=== PATIENT | male | born 1945 | race African-American/Black ===

== ENCOUNTER 2023-10-19 20:53 | Emergency (ER) | payer OTHER, BC ==
[2023-10-19 21:05] VITALS: BP 168/72; PULSE 102; RESP 18; TEMP 98.8; BMI 22.0
== END 2023-10-19 23:28 | disposition left against medical advice (07) ==
LOC: JER 20:53
DX: F12.929 Cannabis use, unspecified with intoxication, unspecified (principal); R41.82 Altered mental status, unspecified; R42 Dizziness and giddiness; R53.1 Weakness
CPT/HCPCS: 99282-25

== ENCOUNTER 2025-01-12 14:22 | Emergency (ER) | payer OTHER, BC ==
[2025-01-12 14:28] VITALS: BP 110/57; PULSE 91; RESP 18; TEMP 98.4
[2025-01-12] MEDS ORDERED: AMPICILLIN NA/SULBACTAM NA 3 GM VIAL ONE (15:03)
[2025-01-12] MEDS ORDERED: DIPHTH,PERTUSS(ACELL),TET 0.5 ML DISP.SYRIN IM ONE (15:03)
[2025-01-12] MEDS: AMPICILLIN NA/SULBACTAM NA 3 GM in SODIUM CHLORIDE 100 ML IVPB ONE (15:04)
[2025-01-12] MEDS: DIPHTH,PERTUSS(ACELL),TET 0.5 ML DISP.SYRIN IM ONE (15:05)
== END 2025-01-12 16:19 | disposition home or self-care (01) ==
LOC: FER 14:22
PROC: 3E03329 Introduction of Other Anti-infective into Peripheral Vein, Percutaneous Approach (ICD-10-PCS; principal; 2025-01-12)
PROC: 3E0234Z Introduction of Serum, Toxoid and Vaccine into Muscle, Percutaneous Approach (ICD-10-PCS; 2025-01-12)
DX: S61.411A Laceration without foreign body of right hand, initial encounter (principal); Z23 Encounter for immunization; W54.0XXA Bitten by dog, initial encounter
CPT/HCPCS: 90471; 90715; 96365; 99284-25